=== PATIENT | female | born 1945 | race Caucasian/White ===

== ENCOUNTER 2016-03-25 15:57 | Emergency (ER) | payer OTHER ==
[~2016-03-25] VITALS: Ht 157.5 cm; Wt 69.9 kg
[2016-03-25 16:37] LABS: HEMATOCRIT 40.3 % (36.0-46.0); MCH 30.1 PG (29.0-34.0); MCHC 34.2 G/DL (30.0-36.0); MEAN PLAT.VOLUME 8.7 uM^3 (9.5-12.4); PLATELET COUNT 222 K/uL (156-360); RBC DIS.WIDTH-CV 12.9 % (11.8-14.6); RBC DIS.WIDTH-SD 40.1 % (39-53); RED BLOOD COUNT 4.58 M/uL (3.80-5.20); WHITE BLOOD COUNT 9.3 K/uL (4.1-10.2)
[2016-03-25 16:48] LABS: CHLORIDE 103 mEq/L (99-109); POTASSIUM 3.7 mEq/L (3.7-5.4); SODIUM 139 mEq/L (136-147)
[2016-03-25 16:50] LABS: GLUCOSE 97 mg/dL (70-99)
[2016-03-25 16:52] LABS: ANION GAP 11 MEQ/L (2-14); TOTAL BILIRUBIN 2.1 mg/dL (0.0-1.0)
[2016-03-25 16:54] LABS: ALKALINE PHOSPHATASE 75 IU/L (3-129)
[2016-03-25 16:55] LABS: GFR ESTIMATE (CALCULATED) > 59 mL/min/; UREA NITROGEN (BUN) 11 mg/dL (9-23)
[2016-03-25 18:23] LABS: LIPASE 32 U/L (1.0-51.0)
[2016-03-25] MEDS ORDERED: AUGMENTIN875 MG PO (19:51)
[2016-03-25 20:28] VITALS: BP 119/70
== END 2016-03-25 20:34 | disposition home or self-care (01) ==
LOC: EME 15:57
DX: K57.92 Diverticulitis of intestine, part unspecified, without perforation or abscess without bleeding (principal); Z87.891 Personal history of nicotine dependence; Z98.84 Bariatric surgery status
CPT/HCPCS: 74176; 80053; 81003; 83690; 85027; 99281; 99284; J7030